=== PATIENT | male | born 1965 | race Caucasian/White ===

== ENCOUNTER 2023-05-30 08:09 | Emergency (ER) | payer MEDICAID ==
[~2023-05-30] VITALS: Ht 180.3 cm; Wt 104.3 kg
[2023-05-30 08:27] VITALS: BP 157/90; PULSE 78; RESP 18; TEMP 97.1; O2SAT 98
[2023-05-30] MEDS: LIDOCAINE 5% 1 EA PATCH TP ONE (09:15)
[2023-05-30] MEDS: KETOROLAC 30 MG/ML VIAL IM ONE (09:17)
[2023-05-30] MEDS: methocarbamoL 500 MG TAB PO STA (09:18)
[2023-05-30 09:56] VITALS: BP 148/89; PULSE 78; RESP 18; TEMP 97.1; O2SAT 98
[2023-05-30] MEDS ORDERED: LID5T TP (10:17)
[2023-05-30] MEDS ORDERED: METH-1681 PO (10:17)
== END 2023-05-30 09:58 | disposition home or self-care (01) ==
LOC: MED 08:09
DX: S16.1XXA Strain of muscle, fascia and tendon at neck level, initial encounter (principal); M54.6 Pain in thoracic spine; R51.9 Headache, unspecified; I10 Essential (primary) hypertension; Z79.899 Other long term (current) drug therapy; W19.XXXA Unspecified fall, initial encounter; Y93.89 Activity, other specified; Y92.091 Bathroom in other non-institutional residence as the place of occurrence of the external cause; Y99.8 Other external cause status
CPT/HCPCS: 96372; 99283; J1885